=== PATIENT | female | born 1935 | race Hispanic/Latino ===

== ENCOUNTER 2019-11-12 17:44 | Emergency (ER) | payer OTHER, SELFPAY ==
[2019-11-12 17:47] VITALS: BP 136/69; PULSE 67; RESP 18; TEMP 36.8; O2SAT 99; BMI 28.5
--- NOTE | 2019-11-12 18:04 | ED.WEAKNESS ---
HPI - Weakness General Chief complaint: Weakness Stated complaint: weakness in legs Time Seen by Provider: 11/12/19 18:01 Source: patient and family (Daughter and ) Mode of arrival: Wheelchair Limitations: no limitations History of Present Illness HPI Narrative: Patient is an 84-year-old female. Has had a history of a stroke. Patient's daughter also states that she has recently been diagnosed with dementia. Caretakers at home include the family. Daughter states that at baseline patient requires some assistance with walking however normally can stand without any problems. He does use a wheelchair. Daughter states that over the past couple days they have noticed that the patient has had more problems with standing for longer periods of time or in the past she has not had issues. They took her to the walk-in clinic 0 concerned about a urinary tract infection. They were instructed to come to the emergency department after the urinalysis from that visit did not show a specific infection. Other than the weakness there are no other complaints. Patient has no complaints. Related Data Home Medications Medication Instructions Recorded Confirmed aspirin 81 mg PO QDAY #0 12/21/17 10/10/19 latanoprost [Xalatan] 1 drp OU HS #0 12/21/17 10/10/19 acetaminophen 325 mg capsule 325 mg PO Q6H PRN 05/03/18 10/10/19 lisinopril 20 mg tablet 10 mg PO DAILY 05/03/18 10/10/19 cholecalciferol (vitamin D3) 1,000 1,000 unit PO DAILY 11/16/18 10/10/19 unit capsule coenzyme Q10 100 mg capsule 100 mg PO DAILY 11/16/18 10/10/19 Resmed Aircurve 10 BIPAP #1 ea 02/07/19 10/10/19 risperidone 1 mg tablet 1 mg PO BID 02/07/19 10/10/19 zonisamide 100 mg capsule 200 mg PO DAILY 02/07/19 10/10/19 lamotrigine 100 mg tablet 100 mg PO BID tab 02/21/19 10/10/19 Previous Rx's Medication Instructions Recorded fluconazole 150 mg tablet 150 mg PO DAILY #1 tab 06/21/19 estradiol 0.5 gram VAGINAL 2XW #42.5 gram 07/27/19 oxyquinoline 0.025 %-sodium lauryl 1 each VAG .1XW #113.4 gram 07/27/19 sulfate 0.01 % vaginal gel Allergies Allergy/AdvReac Type Severity Reaction Status Date / Time naproxen [NAPROXEN] Allergy Severe facial Verified 11/12/19 17:47 swelling Review of Systems Constitutional Constitutional: Denies fever(s) and Reports weakness Cardiovascular Cardiovascular: Denies chest pain and Denies dyspnea Respiratory Respiratory: Denies dyspnea Gastrointestinal Gastrointestinal: Denies abdominal pain and Denies change in stool character Musculoskeletal Musculoskeletal: Reports muscle weakness Integumentary/Breasts Skin/Breast: Denies lesions and Denies rash Neurologic Neurologic: Reports weakness Comments: Other than weakness no change from baseline neurologic status per daughter Hematologic/Lymphatic Hematologic/Lymphatic: Denies easy bleeding and Denies easy bruising Patient History Medical History Ankle pain (Chronic) Carpal tunnel syndrome (Chronic 2007) Cataract (Chronic) Chicken pox (Resolved 1940) Eczema (Chronic) Excessive daytime sleepiness (Chronic) Foot pain (Chronic) Fractures (Resolved 1941) Hayfever (Chronic) Hearing loss (Chronic 2007) History of heavy periods (Resolved) History of painful menstruation (Resolved) Hypertension (Chronic 2002) Measles (Resolved 1939) Mumps (Resolved 1944) Obstructive sleep apnea of adult (Chronic) Osteoporosis (Chronic) Primary insomnia (Chronic) Psoriasis (Chronic) Recurrent sinusitis (Chronic 2007) Rosacea (Chronic) Shoulder pain (Chronic) Sleep apnea (Chronic) Vertigo (Chronic 2007) Social History Smoking Status: Never smoker Smoking Status: Never smoker Substance Use Type: does not use Exam Initial Vital Signs Initial Vital Signs: Vital Signs Temperature 98.2 F 11/12/19 17:47 Pulse Rate 67 11/12/19 17:47 Respiratory Rate 18 11/12/19 17:47 Blood Pressure 136/69 11/12/19 17:47 Pulse Oximetry 99 11/12/19 17:47 Const General: cooperative, healthy appearing, comfortable and well developed Limitations: mental status not altered HENCA Head: normal to inspection and normocephalic Resp Effort & Inspection: normal respiratory effort Auscultation: clear to auscultation bilaterally Cardio Rate: regular rate Rhythm: regular rhythm GI Inspection: non-distended Palpation: soft Skin Lesions: no lesions Rashes: no rashes Neuro General: alert, awake and oriented x3 Other: 5/5 bilateral lower extremity. Patient able to lift legs bilaterally off the bed equally and hold them for 10 seconds. Upper extremities equal strength. Extrem General: normal to inspection, capillary refill normal and No edema Psych Appearance: grossly normal and well kempt Scores GCS Michelle coma scale eye opening: Spontaneous Michelle coma scale verbal response: Orientated Michelle coma scale motor response: Obey commands [place] coma scale total score: 15 Course Orders Ordered: ED Orders 11/12/19 18:23 Basic Metabolic Panel Stat Complete Blood Count AUTO DIFF Stat Vital Signs Vital signs: Vital Signs - 8 hr 11/12/19 17:47 11/12/19 19:33 Temperature 98.2 F 97.7 F Pulse Rate 67 63 Respiratory Rate 18 18 Blood Pressure 136/69 132/56 L Pulse Oximetry 99 99 MDM - Weakness Medical Records Attestation: I reviewed the patient's medical records. Lab Data Attestation: I reviewed the patient's lab results. Result diagrams: 11/12/19 18:23 11/12/19 18:23 Labs: Lab Results 11/12/19 11/12/19 Range/Units 18:23 18:23 WBC 6.2 (4.5-11.0) X10^3/uL RBC 3.84 L (4.0-5.2) X10^6/uL Hgb 10.5 L (12.0-16.0) g/dL Hct 32.4 L (36-46) % MCV 84.2 (80-100) fL MCH 27.3 (26-34) PG MCHC 32.5 (30-36) % RDW 14.6 (11.6-14.8) % Plt Count 209 (150-400) X10^3/uL Neut % (Auto) 67.8 (50-75) % Lymph % (Auto) 18.8 L (25-40) % [place] % (Auto) 9.0 (3-14) % Eos % (Auto) 3.4 (2-4) % Baso % (Auto) 1.0 (0-2) % Neut # (Auto) 4200 (4833-0576) /uL Lymph # (Auto) 1200 (7276-2158) /uL [place] # (Auto) 600 (0-900) /uL Eos # (Auto) 200 (0-450) /uL Baso # (Auto) 100 (0-100) /uL Sodium 137 (137-145) mmol/L Potassium 4.3 (3.4-5.1) mmol/L Chloride 105 (98-107) mmol/L Carbon Dioxide 23 (22-32) mmol/L BUN 23 H (7-17) mg/dL Creatinine 1.70 H (0.52-1.04) mg/dL Estimated GFR 28.6 L (>60) mL/min BUN/Creatinine Ratio 13.5 (6-22) Glucose 99 (80-110) mg/dL Calcium 8.7 (8.4-10.2) mg/dL MDM Narrative Medical decision making narrative: Despite the reported history of dementia patient was alert and oriented x3. Had a GCS of 15. She had no specific complaints. Her blood work today relatively unremarkable. Low suspicion for CVA. Low suspicion for TIA. Patient was able to lift both her legs off the bed equally. Main complaint from the family was that patient seemed to have decreased ability to stand for prolonged periods of time which prior to 3 or 4 days ago she was able to do. For example patient was able to stand at the sink in order to brush her teeth and for the past couple days she has had to sit down during this time. Her ambulation seems to be at baseline. She does require helped at baseline but this is not new. We did discuss the lab results. Talked with the patient's daughter about contacting the primary provider on Thursday to discuss potential further workup. They were given return precautions and follow-up instructions. They expressed understanding and agreement with plan. Discharge Plan Departure Patient Disposition: Home Clinical Impression: Weakness Discharge Date/Time: 11/12/19 19:34 Instructions: How to Prevent Falls Activity Restrictions/Additional Instructions: I recommend on Thursday you contact your primary provider for follow-up to discuss further workup. Return to the emergency department for any new or worsening symptoms. Continue all of your medications as directed Prescriptions: No Action latanoprost [Xalatan] 0.005 % drops 1 drp OU HS Qty: 0 RF: 0 aspirin 81 MG tablet,chewable 81 mg PO QDAY Qty: 0 RF: 0 estradiol [Estrace] 0.01 % (0.1 mg/gram) cream 0.5 gram Vaginal 2XW Qty: 42.5 RF: 3 Trimo-Soto Jelly 0.025-0.01 % gel 1 each VAG .1XW Qty: 113.4 RF: 3 lisinopril 20 mg tablet 10 mg PO DAILY RF: 0 acetaminophen 325 mg capsule 325 mg PO Q6H PRNRF: 0 cholecalciferol (vitamin D3) 1,000 unit capsule 1,000 unit PO DAILY RF: 0 coenzyme Q10 [CoQ-10] 100 mg capsule 100 mg PO DAILY RF: 0 fluconazole [Diflucan] 150 mg tablet 150 mg PO DAILY Qty: 1 RF: 1 risperidone 1 mg tablet 1 mg PO BID RF: 0 zonisamide [Zonegran] 100 mg capsule 200 mg PO DAILY RF: 0 (DME) Resmed Aircurve 10 BIPAP Qty: 1 RF: 0 lamotrigine [Lamictal] 100 mg tablet 100 mg PO BID RF: 0
[2019-11-12 18:38] LABS: Add Manual Diff / Slide Review NO; Basophils Absolute Auto 100 /uL (0-100); Eosinophils Absolute Auto 200 /uL (0-450); Eosinophils Percent Auto 3.4 % (2-4); Hematocrit 32.4 % (36-46); Hemoglobin 10.5 g/dL (12.0-16.0); Lymphocytes Absolute Auto 1200 /uL (1100-4500); Lymphocytes Percent Auto 18.8 % (25-40); Mean Corpuscular HGB Conc 32.5 % (30-36); Mean Corpuscular Hemoglobin 27.3 PG (26-34); Mean Corpuscular Volume 84.2 fL (80-100); Monocytes Absolute Auto 600 /uL (0-900); Neutrophils Absolute Auto 4200 /uL (1500-7000); Neutrophils Percent Auto 67.8 % (50-75); Platelet Count 209 X10^3/uL (150-400); Red Blood Cell Count 3.84 X10^6/uL (4.0-5.2); Red Cell Distribution Width 14.6 % (11.6-14.8); White Blood Cell Count 6.2 X10^3/uL (4.5-11.0)
[2019-11-12 18:48] LABS: BUN Creatinine Ratio 13.5 (6-22); Blood Urea Nitrogen 23 mg/dL (7-17); Calcium 8.7 mg/dL (8.4-10.2); Carbon Dioxide 23 mmol/L (22-32); Chloride 105 mmol/L (98-107); Estimated Glomerular Filt Rate 28.6 mL/min (>60); Glucose 99 mg/dL (80-110); HEMOLYSIS < 15 (0-50); Potassium 4.3 mmol/L (3.4-5.1); Sodium 137 mmol/L (137-145)
[2019-11-12 19:33] VITALS: BP 132/56; PULSE 63; RESP 18; TEMP 36.5; O2SAT 99
== END 2019-11-12 19:34 | disposition home or self-care (01) ==
PROVIDERS: Emergency Provider Emergency Medicine
DX: R53.1 Weakness (principal); F03.90 Unspecified dementia, unspecified severity, without behavioral disturbance, psychotic disturbance, mood disturbance, and anxiety
CPT/HCPCS: 36415; 80048; 85025; 99283

== ENCOUNTER → 2020-09-24 14:02 | Outpatient (CLI) | payer OTHER, SELFPAY ==
[2020-09-24 15:05] LABS: Add Manual Diff / Slide Review NO; Basophils Absolute Auto 100 /uL (0-100); Basophils Percent Auto 0.9 % (0-2); Eosinophils Absolute Auto 100 /uL (0-450); Hematocrit 34.1 % (36-46); Lymphocytes Absolute Auto 1200 /uL (1100-4500); Mean Corpuscular HGB Conc 32.2 % (30-36); Mean Corpuscular Hemoglobin 31.2 PG (26-34); Mean Corpuscular Volume 96.8 fL (80-100); Monocytes Absolute Auto 600 /uL (0-900); Monocytes Percent Auto 9.3 % (3-14); Neutrophils Absolute Auto 4500 /uL (1500-7000); Neutrophils Percent Auto 69.8 % (50-75); Platelet Count 239 X10^3/uL (150-400); Red Blood Cell Count 3.52 X10^6/uL (4.0-5.2); White Blood Cell Count 6.5 X10^3/uL (4.5-11.0)
[2020-09-24 16:37] LABS: Iron 61 ug/dL (37-170)
[2020-09-24 16:46] LABS: Percent Iron Saturation 18 % (15-50); Total Iron Binding Capacity 330 ug/dL (265-497)
== END ==
PROVIDERS: PCP Internal Medicine; Referring Provider Internal Medicine; Visit Provider Internal Medicine
DX: K92.2 Gastrointestinal hemorrhage, unspecified (principal); D50.9 Iron deficiency anemia, unspecified
CPT/HCPCS: 36415; 83540; 83550; 85025

== ENCOUNTER → 2020-11-09 10:37 | Outpatient (CLI) | payer OTHER, SELFPAY ==
[2020-11-09 11:11] LABS: COVID19 -Nasal RAPID Negative (Negative)
== END ==
PROVIDERS: PCP Internal Medicine; Visit Provider Specialist
DX: Z20.822 Contact with and (suspected) exposure to COVID-19 (principal)
CPT/HCPCS: 87635; C9803

== ENCOUNTER 2020-11-12 08:56 | Day surgery (SDC) | payer OTHER, SELFPAY ==
[2020-11-12] VITALS (11 sets, daily range): BP systolic 135–158; BP diastolic 56–75; PULSE 60–83; RESP 10–18; TEMP 36.2–36.9; O2SAT 94–99; BMI 25.7
--- NOTE | 2020-11-12 | DI.RAD.S_ITS ---
PROCEDURE: XR CHEST 1V INDICATIONS: PORT A CATH TECHNIQUE: One view of the chest was acquired. COMPARISON: None. FINDINGS: Surgical changes and devices: There is a Port-A-Cath in the left anterior chest with the tip of the catheter projecting to the area of brachiocephalic confluence. Lungs and pleura: Lungs are clear. No pleural effusions or pneumothorax. Mediastinum: Mediastinal contours appear normal. Heart size is mildly increased in size. Bones and chest wall: No suspicious bony lesions. Overlying soft tissues appear unremarkable. IMPRESSION: 1. The tip of the Port-A-Cath projecting to the area of brachiocephalic confluence. Please confirm venous location of the catheter. Dictated by: Alfredo Leone M.D. on 11/12/2020 at 14:29 Approved by: Alfredo Leone M.D. on 11/12/2020 at 14:31
[2020-11-12] MEDS: ACETAMINOPHEN 325 MG TABLET 650 MG PO (09:12)
[2020-11-12] MEDS: LACTATED RINGERS 1,000 ML 42 ML IV (10:02)
--- NOTE | 2020-11-12 11:56 | PM.HP.1 ---
History of Present Illness History of Present Illness Date Patient Seen: 11/12/20 Time Patient Seen: 11:29 Chief complaint: SDC Narrative: The patient is a woman here for a Port-A-Cath. She is about to undergo immunotherapy for a tumor apparently near her GE junction. She is apparently a poor candidate for radiation and IV chemotherapy. Patient History Medical History Ankle pain Carpal tunnel syndrome (2007) Cataract Cerebrovascular accident (CVA) Chicken pox (194) Eczema Excessive daytime sleepiness Foot pain Fractures (1941) Hayfever Hearing loss (2007) History of heavy periods History of painful menstruation Hypertension (2002) Measles (1940) Mumps (194) Obstructive sleep apnea of adult Osteoporosis Primary insomnia Psoriasis Recurrent sinusitis (2007) Rosacea Shoulder pain Sleep apnea Vertigo (2007) Surgical History Anesthesia History of meniscal tear (05/2004) Status post cholecystectomy (06/2004) Family & Social History Family History Father Hypertension High cholesterol Brainstem hemorrhage Mother Diabetes mellitus Hypertension High cholesterol Stroke Brother Cancer Sister Colon cancer Breast cancer Social History: household members spouse Tobacco & Substance use: Smoking Status Former smoker alcohol intake never Substance Use Type does not use Meds Home Medications and Allergies Home Medications Medication Instructions Recorded Confirmed Type latanoprost [Xalatan] 1 drp OU HS #0 12/21/17 11/12/20 History acetaminophen 325 mg capsule 325 mg PO Q6H PRN 05/03/18 11/12/20 History lisinopril 20 mg tablet 10 mg PO DAILY 05/03/18 11/12/20 History cholecalciferol (vitamin D3) 25 1,000 unit PO DAILY 11/16/18 11/12/20 History mcg (1,000 unit) capsule risperidone 1 mg tablet 1 mg PO BID 02/07/19 11/12/20 History zonisamide 100 mg capsule 200 mg PO DAILY 02/07/19 11/12/20 History lamotrigine 100 mg tablet 100 mg PO BID tab 02/21/19 11/12/20 History oxyquinoline 0.025 %-sodium lauryl 1 each VAG .1XW #113.4 gram 07/27/19 11/12/20 Rx sulfate 0.01 % vaginal gel estradiol See Rx Instructions .ROUTE 08/06/20 11/12/20 Rx .COMPLEX #42.5 gram Allergies Allergy/AdvReac Type Severity Reaction Status Date / Time naproxen [NAPROXEN] Allergy Severe facial Verified 11/12/20 09:21 swelling Review of Systems Review of Systems Narrative: Patient denies any cardiac problems. No cough or cold. She has lost a lot of weight and use to use a machine for sleep apnea but since her weight loss she has not done that any longer. Exam Vital Signs (past 8 hours): - 11/12/20 09:37 Temperature 98.2 F Pulse Rate 64 Respiratory Rate 18 Blood Pressure 158/72 H Pulse Oximetry 99 Oxygen Delivery Method Room Air Narrative Exam Narrative: Cooperative in no apparent distress. Her lungs are clear to auscultation. No rales or rhonchi. Heart regular rate and rhythm no murmur gallop. Abdomen is scaphoid soft nontender without mass. Patient is alert. Affect is flat. Responses are limited though propria it. Assessment & Plan Assessment & Plan narrative: Patient request is been made for placement of a Port-A-Cath. She is right-hand dominant. I have discussed placement with her. I discussed the nature of the procedure. Will uses subclavian or internal jugular vein. Risks of bleeding infection clotting of the vein with arm swelling or possible PEG and possible pneumothorax with need for chest tube were all discussed with her. She appears to understand wishes to proceed. Apparently her had a similar device in the past.
--- NOTE | 2020-11-12 12:01 | PM.PREOP ---
Pre-operative Note COVID-19 COVID-19 status: Negative Result date/Date tested (Pos, Neg/Pending): 11/09/20 Interval Note History & Physical reviewed/Exam performed by Physician: Yes Changes to H&P: No
[2020-11-12] MEDS: CEFAZOLIN 2 GM/100 ML FROZ.PIGGY IV (12:15)
--- NOTE | 2020-11-12 12:28 | SUR.OPER ---
Supine on padded OR bed, head on gel donut, arm padded and tucked at side, legs uncrossed, safety belt at thigh, tape over blanket over lower legs .
[2020-11-12] MEDS: LIDOCAINE 1% 30 ML INJ (12:39)
[2020-11-12] MEDS: HEPARIN 5,000 UNIT, SODIUM CHLORIDE 0.9% 50 ML IV (12:39)
--- NOTE | 2020-11-12 13:31 | PM.OP.1 ---
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 No pneumothorax. Closure Type: primary Specimen(s): none sent Prosthetic devices, grafts, tissues, transplants, or devices: Slim Port-A-Cath Applied: catheter Estimated Blood Loss (mL): 5 Blood products transfused: none Procedure in detail: patient is placed supine on the operating room table underwent general LMA anesthesia. A roll was placed between her shoulders that she was prepped and draped in the usual fashion. Local anesthetic was infiltrated a field block fashion beneath the left clavicle. Transverse incision was made and carried down into the subcu. a pocket was created inferior to the incision told the port. Needle was inserted on 1st attempt in the subclavian vein and guidewire passed a needle removed. The guidewire was going in the appropriate location. The port was put together flushed and tapered to appropriate length. The dilator and introducer passed over the guidewire. The dilator and guidewire removed leaving the introducer in place. The catheter was passed through the introducer and the introducer peeled away leaving the tip in the SVC. The port was secured to the chest wall with interrupted 2 0 silk sutures. The subQ was closed over the port with interrupted 3-0 Vicryl. Skin was closed a running 4-0 Vicryl subcuticular stitch and Steri-Strips. Dressing was applied the patient tolerated the procedure well. Complications: none Post-operative Condition: stable Disposition: PACU
== END 2020-11-12 14:30 | disposition home or self-care (01) ==
PROVIDERS: PCP Internal Medicine; Referring Provider Specialist; Visit Provider Specialist
PROC: (CPT 36561; principal; 2020-11-12 10:15)
DX: C16.0 Malignant neoplasm of cardia (principal); Z45.2 Encounter for adjustment and management of vascular access device; G47.33 Obstructive sleep apnea (adult) (pediatric); I10 Essential (primary) hypertension; I69.354 Hemiplegia and hemiparesis following cerebral infarction affecting left non-dominant side; F03.90 Unspecified dementia, unspecified severity, without behavioral disturbance, psychotic disturbance, mood disturbance, and anxiety; G40.909 Epilepsy, unspecified, not intractable, without status epilepticus
CPT/HCPCS: 36561; 71045; 76000; C1788; J0690; J1100; J1644; J2405; J2704

== ENCOUNTER → 2021-01-24 16:03 | Outpatient (CLI) | payer OTHER, SELFPAY | PROVIDERS: PCP Internal Medicine; Referring Provider Internal Medicine Hematology & Oncology; Visit Provider Internal Medicine Hematology & Oncology | DX: C16.0 Malignant neoplasm of cardia (principal) ==

== ENCOUNTER → 2021-02-28 15:17 | Outpatient (CLI) | payer OTHER, SELFPAY ==
--- NOTE | 2021-02-28 15:19 | DI.CT.S_ITS ---
PROCEDURE: CT CHEST ABD PEL W CON INDICATIONS: GE junction cancer TECHNIQUE: After the administration of oral and intravenous contrast, 5 mm thick sections acquired from the lung apices to the symphysis. 5 mm coronal and sagittal reformats were performed, with additional 7 mm coronal MIP reformats through the lungs. For radiation dose reduction, the following was used: automated exposure control, adjustment of mA and/or kV according to patient size. COMPARISON: [place], [place], [place] PET CT FUSION SKULL 2 THIGH, 11/21/2020, 11:29. FINDINGS: Image quality: Excellent. CHEST: Lungs and pleura: No acute airspace opacities. Mild linear atelectasis. No pleural effusions or pneumothorax. Central and peripheral airways appear patent and normal in caliber. Mediastinum: Heart size is normal. No pericardial effusion. No mediastinal or hilar adenopathy by size criteria. Thoracic aorta and central pulmonary arteries are normal in size. Esophagus is normal in caliber. No hiatal hernia. The Port-A-Cath from left-sided approach slightly crosses the midline but does not enter the superior vena cava. Its tip terminates within the left brachiocephalic vein series 2, image 14. Chest wall: No axillary or supraclavicular adenopathy by size criteria. Thyroid gland is normal where well seen. ABDOMEN: Solid organs: Liver is normal in size and enhancement except for a small 1 cm hypodensity at the subcapsular a left hepatic lobe seen on series 2, image 46 and representing the focus of metastatic disease seen by PET-CT scanning at that site. No new liver lesion is found. Gallbladder appears previously resected . Biliary system is non dilated. Pancreas enhances normally. Spleen is normal in size and enhancement. No adrenal nodules. Kidneys demonstrate normal size and enhancement, without hydronephrosis. Peritoneum and bowel: Bowel loops demonstrate normal wall thickness and caliber. No free fluid or air. The gastric mass at the cardia/body is prominent in wall thickness, possibly a slightly enlarged, having a maximal wall thickness of approximately 3.7 cm, and a and measuring up to 5.3 x 9.5 cm in maximal curvilinear dimensions at the anterior gastric wall prominently within the gastric cardia. Nodes and vessels: No retroperitoneal or mesenteric adenopathy by size criteria. Aorta and inferior vena cava are normal in size. Miscellaneous: No ventral hernias. PELVIS: Genitourinary: Bladder wall thickness is normal. Miscellaneous: No inguinal hernias or adenopathy. Bones: No suspicious bony lesions. No vertebral body compression fractures. IMPRESSION: The gastric mass lesion was previously visualized by noncontrast nuclear medicine PET-CT scanning. The current contrast enhanced study allows better visualization of this mass which is large and may have slightly enlarged from the prior PET-CT scanning. This is also associated with a focal 1 cm subcapsular left hepatic lobe all anterior metastatic lesion, also seen on prior PET-CT scanning. No new metastatic disease is found. Dictated by: Rico Bernard M.D. on 03/01/2021 at 11:04 Approved by: Rico Bernard M.D. on 03/01/2021 at 11:34
== END ==
PROVIDERS: PCP Internal Medicine; Referring Provider Internal Medicine Hematology & Oncology; Visit Provider Internal Medicine Hematology & Oncology
DX: C16.0 Malignant neoplasm of cardia (principal); C78.7 Secondary malignant neoplasm of liver and intrahepatic bile duct
CPT/HCPCS: 71260; 74177; Q9967

== ENCOUNTER → 2021-03-19 13:36 | Outpatient (CLI) | payer OTHER, SELFPAY ==
[2021-03-19 14:02] LABS: COVID19 -Nasal RAPID Negative (Negative)
== END ==
PROVIDERS: PCP Internal Medicine; Visit Provider Specialist
DX: Z20.822 Contact with and (suspected) exposure to COVID-19 (principal)
CPT/HCPCS: 87635; C9803

== ENCOUNTER 2021-03-20 10:15 | Day surgery (SDC) | payer OTHER, SELFPAY ==
[2021-03-20] VITALS (8 sets, daily range): BP systolic 126–159; BP diastolic 52–70; PULSE 55–61; RESP 12–20; TEMP 36.1–36.6; O2SAT 93–100; BMI 25.5
--- NOTE | 2021-03-20 | DI.RAD.S_ITS ---
PROCEDURE: XR CHEST 1V INDICATIONS: PORT PLACEMENT TECHNIQUE: One intraoperative view of the chest was acquired. COMPARISON: [facility], CT, CT CHEST ABD PEL W CON, 02/28/2021, 16:28. [facility], CR, XR CHEST 1V, 11/12/2020, 13:12. FINDINGS: Surgical changes and devices: Left-sided port with the catheter tip projecting in the region of the middle 3rd of the SVC. IMPRESSION: Left-sided port with the catheter tip projecting in the region of the middle 3rd of the SVC. Dictated by: Juan Colin M.D. on 03/20/2021 at 14:31 Approved by: Juan Colin M.D. on 03/20/2021 at 14:33
--- NOTE | 2021-03-20 10:24 | PM.PREOP ---
Pre-operative Note COVID-19 COVID-19 status: Negative Result date/Date tested (Pos, Neg/Pending): 03/19/21 Interval Note History & Physical reviewed/Exam performed by Physician: Yes Changes to H&P: No
[2021-03-20] MEDS: LACTATED RINGERS 1,000 ML 42 ML IV (10:48)
[2021-03-20] MEDS: CEFAZOLIN 1 GM VIAL 2 GM IV (11:33)
--- NOTE | 2021-03-20 11:46 | SUR.OPER ---
Supine on padded OR bed, head on pillow, arm padded and tucked at side, legs uncrossed, safety belt at thigh, tape over blanket over lower legs .
[2021-03-20] MEDS: HEPARIN 5,000 UNIT, SODIUM CHLORIDE 0.9% 50 ML IV (11:52)
[2021-03-20] MEDS: LIDOCAINE 1% 30 ML INJ (11:53)
--- NOTE | 2021-03-20 12:21 | P.OP_ITS ---
Operative Date/Time/Diagnoses Date of procedure: 03/20/21 Time of procedure: 12:22 Pre-op diagnosis: Port-A-Cath which had backed out and was no longer useful. Post-op diagnosis: same Procedure & Clinicians Procedure: Removal of old Port-A-Cath and placement of new Port-A-Cath left infraclavicular fossa Same procedure as scheduled: Yes Indications: Need for IV access for chemotherapy. Recently placed port had actually backed out and looped under her skin. It was no longer aspirating. Surgeon: Sanchez Carreon Click Yes if Unassisted: Yes Anesthesia Type: General Operative Notes Findings: Tip appeared to be against the wall preventing aspiration. I changed the Port-A-Cath and catheter over a wire. See details below. Closure Type: primary Specimen(s): none sent Prosthetic devices, grafts, tissues, transplants, or devices: Slim Port-A-Cath Applied: catheter Estimated Blood Loss (mL): 5 Blood products transfused: none Procedure in detail: The patient was placed supine on the operating room and underwent general LMA anesthesia. A roll was placed between her shoulders. She was prepped and draped in the usual fashion. Local anesthetic was infiltrated in a field block fashion around the prior port. Transverse incision was made through the old scar and carried down level the port. I dissected the port itself out of its pocket and delivered it into the wound cutting attachments and the holding sutures which had been placed. With the assistance of fluoroscopy I backed the catheter out so it was straight. I estimated the length needed for the 2nd port and catheter. I tapered it to appropriate length. I then clamped the tubing and transected it near the attachment to the port. I dilated the end to make passage easier and then slid a guidewire through the catheter under fluoroscopy taking great care not to lose control of the catheter. When I reached the end the catheter would not come through the opening until I backed it is slightly away from its position and then it slid without difficulty suggesting than it had been against the wall. The guidewire was passed into the superior vena cava and beyond. I backed the catheter off the wire making sure to control both as I backed them out and did not lose control of either. The catheter was then slid off the wire once the entire length was visible. The guidewire was still noted to be in good position in the superior vena cava. I then placed the port into the prior pocket. I passed the dilator and introducer over the guidewire observing it under fluoroscopy. It had a straight arcing cur ve. The guidewire and the dilator were removed leaving leak peel-away catheter introducer in place. I passed the catheter through the introducer and peeled away leaving the tip in the distal SVC. The flouroscopic image was captured and preserved. The port was secured to the chest wall with interrupted 2 0 silk suture. I also placed a investing suture around the catheter tying it down not so tightly as to constrict the catheter but just to hold it in place. I then aspirated and flushed the port without difficulty. The subcu was closed with 3- 0 Vicryl. The skin was closed a running 4-0 Vicryl subcuticular stitch and Steri-Strips. Dressing was applied and the patient was awakened, extubated and taken the recovery room good condition. Complications: none Post-operative Condition: stable Disposition: PACU Plan for aftercare: Follow-up in the office. No post procedures chest x-ray was performed because there was no needle insertion which could have resulted in a pneumothorax. Only the image post placement of the catheter was preserved to confirm its location.
== END 2021-03-20 13:20 | disposition home or self-care (01) ==
PROVIDERS: PCP Internal Medicine; Referring Provider Specialist; Visit Provider Specialist
PROC: (CPT 36582; principal; 2021-03-20 11:15)
DX: C16.0 Malignant neoplasm of cardia (principal)
CPT/HCPCS: 36582; 71045; 76000; C1788; J0690; J1644; J2704; J3010

== ENCOUNTER → 2021-04-18 10:13 | Outpatient (CLI) | payer OTHER, SELFPAY ==
--- NOTE | 2021-04-18 10:14 | DI.ECHO.S_ITS ---
[place] [facility]---------+ [facility] +---------+ : : [address] : : : : [address] : : : : [id number] : : : : Phone: [phone]---------+ Echocardiogram Report + + :Name: JAZZMINE SNYDER V Study Date: 04/18/2021 Height: 60 in : :[facility] ReadingLocation: Weight: 131 lb : : Gender: Female BSA: 1.6 m2 : :: 1935 Age: 85 yrs BP: 140/67 mmHg: :Reason For Study: CANCER : :Ordering Physician: SANKET, : :LISBETH Performed By: Stan Lamas : :Referring: OMAR COLES : + + Interpretation Summary 1) Normal left ventricular thickness, size, wall motion, and systolic function (EF 55-60%). 2) Normal right ventricular size and function. 3) Diastolic parameters suggest a pseudonormalization pattern, consistent with probable elevated filling pressures. 4) There is mild aortic stenosis (valve area 1.5cm2, severity ratio 0.49). 5) No prior Echo available for comparison. Procedure: A two-dimensional transthoracic echocardiogram with color flow and Doppler was performed. The study quality was technically adequate. There is no prior echocardiogram noted for this patient. The patient was in sinus rhythm with heart rates between 58-61 bpm during the exam. Left Ventricle: The left ventricle is normal in size and wall thickness. Left ventricular systolic function is normal. The ejection fraction is estimated to be 55-60%. There are no focal wall motion abnormalities. Diastolic parameters suggest a pseudonormalization pattern, consistent with probable elevated filling pressures. Right Ventricle: The right ventricle is normal in size and function. Atria: The left atrium is moderately dilated. Right atrial size is normal. There is no Doppler evidence for an interatrial shunt. Mitral Valve: There is mild mitral annular calcification. There is mild mitral regurgitation. Aortic Valve: The aortic valve is normal in structure and function. There is mild aortic stenosis. No aortic regurgitation is present. Tricuspid Valve: The tricuspid valve is normal in structure and function. There is trace tricuspid regurgitation. Pulmonary artery pressures cannot be estimated because of the lack of a measurable TR jet velocity but the IVC suggests a CVP of around 3 mmHg. Pulmonic Valve: The pulmonic valve is not well visualized. There is mild pulmonic regurgitation. Great Vessels: The aortic root is normal size. The ascending aorta could not be visualized. The IVC is of normal diameter and collapses greater than 50% with a sniff. This suggests a low right atrial pressure of 3 mm Hg. Pericardium/ Pleura There is no pericardial effusion. There is no pleural effusion. MMode/2D Measurements & Calculations LVIDd: 4.3 cm LVOT diam: 2.0 cm LVIDs: 2.9 cm Ao root diam: 2.8 cm FS: 31.3 % IVSd: 1.1 cm LVPWd: 1.0 cm LV villasenor. diameter/BSA (cm/m^2): 2.7 LV sys. diameter/BSA (cm/m^2): 1.9 LA A2 area: 17.4 cm2 RA long axis: 5.6 cm LA A4 area: 24.9 cm2 RA area: 14.0 cm2 LA length (vol): 5.1 cm RA vol: 29.8 ml LA vol: 72.0 ml RA : 19.1 ml/m2 LA vol index: 46.2 ml/m2 RVD1 (basal): 3.3 cm TAPSE: 2.3 cm Doppler Measurements & Calculations Ao V2 max: 114.3 cm/sec LVOT Max Ney: 47.1 cm/sec Ao V2 mean: 68.9 cm/sec LV V1 max P.8 mmHg Ao max P.2 mmHg LV V1 VTI: 11.6 cm Ao mean P.3 mmHg JUAN JOSE(I,D): 1.5 cm2 Ao V2 VTI: 23.8 cm JUAN JOSE(V,D): 1.3 cm2 sev ratio: 0.49 JUAN JOSE indexed to BSA (cm^2/m^2): 0.97 MV E max ney: 97.2 cm/sec PA V2 max: 99.3 cm/sec MV A max ney: 109.0 cm/sec PA V2 mean: 67.5 cm/sec MV E/A: 0.89 PA mean P.0 mmHg Med Peak E' Ney: 7.2 cm/sec PA pr(Accel): 51.0 mmHg E/E' med: 13.6 Lat Peak E' Ney: 6.5 cm/sec E/E' lat: 14.9 E/e' average: 14.2 MV dec time: 0.26 sec SV(LVOT): 36.1 ml Reading Physician:04:09 PM
== END ==
PROVIDERS: PCP Internal Medicine; Referring Provider Internal Medicine Hematology & Oncology; Visit Provider Internal Medicine Hematology & Oncology
DX: Z01.818 Encounter for other preprocedural examination (principal); C16.0 Malignant neoplasm of cardia; I08.0 Rheumatic disorders of both mitral and aortic valves
CPT/HCPCS: 93306

== ENCOUNTER 2021-08-09 14:01 | Emergency (ER) | payer OTHER, MEDICARE, SELFPAY ==
[2021-08-09 14:39] VITALS: BP 136/63; PULSE 68; RESP 12; TEMP 36.8; O2SAT 98; BMI 25.0
[2021-08-09 16:28] LABS: Amorphous Sediment Urine 1+; Bacteria Urine Few (2-10); Culture Indicated Urine Cult Not Indicated; Mucus Urine 1+ (Negative); RBC Urine 0-1/HPF (0-5/HPF); Squamous Epithelial Cell Urine 5-10 /HPF (0-5/HPF); Transitional Epi Cells Urine 1-5/HPF (0-5/HPF); WBC Urine 0-1/HPF (0-5/HPF)
[2021-08-09 17:27] LABS: Add Manual Diff / Slide Review NO; Basophils Absolute Auto 0 /uL (0-100); Basophils Percent Auto 0.5 % (0-2); Eosinophils Absolute Auto 100 /uL (0-450); Eosinophils Percent Auto 1.4 % (2-4); Hematocrit 30.6 % (36-46); Hemoglobin 10.2 g/dL (12.0-16.0); Lymphocytes Absolute Auto 1300 /uL (1100-4500); Lymphocytes Percent Auto 16.6 % (25-40); Mean Corpuscular HGB Conc 33.2 % (30-36); Mean Corpuscular Hemoglobin 29.7 PG (26-34); Mean Corpuscular Volume 89.3 fL (80-100); Monocytes Absolute Auto 500 /uL (0-900); Monocytes Percent Auto 6.2 % (3-14); Neutrophils Absolute Auto 6100 /uL (1500-7000); Neutrophils Percent Auto 75.3 % (50-75); Platelet Count 261 X10^3/uL (150-400); Red Blood Cell Count 3.43 X10^6/uL (4.0-5.2); Red Cell Distribution Width 15.1 % (11.6-14.8)
--- NOTE | 2021-08-09 17:40 | PC.NURSE ---
pt daughter has concerns for intermittent increased work of breathing- not present at this time. and 2 days of diarrhea. pt has some general pain at baseline but in no discomfort at this time.
--- NOTE | 2021-08-09 17:46 | ED_ITS ---
HPI - Female Genitourinary <Mala Pham [facility] - Last Filed: 08/09/21 21:00> General Chief complaint: Urogenital-Female Stated complaint: Poss bladder infection- gastric cancer Time Seen by Provider: 08/09/21 14:48 Source: family Mode of arrival: Wheelchair History of Present Illness HPI Narrative: 86-year-old female with complicated medical history including gastric esophageal cancer receiving immunotherapy no chemotherapy or radiation, GAYATHRI, glaucoma, Parkinsonism/tremors from medications, and is brought in by her caregiver and daughter for primary concern about possible UTI. Patient is undergoing Herceptin and Keytruda treatment and the daughter is concerned about her side effects which have been transient in nature. They have been in close contact with her oncologist about this patient is a DNR with supportive measures including IV fluids, antibiotics, nutrition. Patient's daughter who is here with her today is not her POA. Patient is currently alert, oriented, and at baseline. Patient's daughter reports that she has had episodes of Bartolome-Ybarra respirations which have not occurred today. Patient's daughter reports on 08/06/2021 her urine had a foul odor and it appeared cloudy which is unusual for her, it was right after her last treatment. patient's daughter states that this has resolved in her urine today has been clear. Patient denies any dysuria, abdominal pain, pain anywhere, dizziness, headache, nausea or vomiting. Patient has been at her baseline activity level for the last couple of days according to the daughter without any progressive symptoms of any kind. Jennifer shaikh reports that she has had transient Related Data Home Medications Medication Instructions Recorded Confirmed latanoprost 0.005 % eye drops 1 drp OU HS #0 12/21/17 05/30/21 (Xalatan) acetaminophen 325 mg capsule 325 mg PO Q6H PRN 05/03/18 05/30/21 lisinopril 20 mg tablet 20 mg PO DAILY 05/03/18 05/30/21 cholecalciferol (vitamin D3) 25 1,000 unit PO DAILY 11/16/18 05/30/21 mcg (1,000 unit) capsule risperidone 1 mg tablet 0.5 mg PO BID 02/07/19 05/30/21 zonisamide 100 mg capsule 200 mg PO DAILY 02/07/19 05/30/21 (Zonegran) lamotrigine 100 mg tablet 100 mg PO BID tab 02/21/19 05/30/21 (Lamictal) pantoprazole 40 mg tablet,delayed 40 mg PO DAILY 03/20/21 05/30/21 release (Protonix) sucralfate 1 gram tablet (Carafate) 1 g PO Q6-8H 03/20/21 05/30/21 amlodipine 2.5 mg tablet 2.5 mg PO DAILY 04/18/21 05/30/21 morphine 0.5 mg/mL injection 0.25 08/01/21 solution Previous Rx's Medication Instructions Recorded oxyquinoline 0.025 %-sodium lauryl 1 ea VAG .1XW #113.4 gram 06/27/21 sulfate 0.01 % vaginal gel (Trimo-Soto Jelly) levothyroxine 75 mcg capsule 75 mcg PO DAILY #30 cap 07/11/21 estradiol See Rx Instructions .ROUTE 07/30/21 .COMPLEX #42.5 g Allergies Allergy/AdvReac Type Severity Reaction Status Date / Time naproxen [NAPROXEN] Allergy Severe facial Verified 05/13/21 14:40 swelling Review of Systems <VASU Patino - Last Filed: 08/09/21 21:00> Review of Systems Narrative: General: denies fever, chills Head/Neck: denies headache, neck pain Eyes: denies visual changes, eye pain Cardio: denies chest pain, palpitations Respiratory: denies shortness of breath, cough GI: denies abdominal pain, nausea, vomiting, or diarrhea : denies dysuria, hematuria MSK: denies joint pain, muscle weakness Skin: denies rash, itching Neuro: denies numbness, tingling Patient History <VASU Patino - Last Filed: 08/09/21 21:00> Medical History (Updated 08/09/21 @ 18:40 by VASU Patino) Ankle pain Carpal tunnel syndrome (2007) Cataract Cerebrovascular accident (CVA) Chicken pox (194) Eczema Excessive daytime sleepiness Foot pain Fractures (1941) Hayfever Hearing loss (2007) History of heavy periods History of painful menstruation Hypertension (2002) Measles (1940) Mild dementia Mumps (194) Obstructive sleep apnea of adult Osteoporosis Port-A-Cath in place (11/12/20) Primary insomnia Psoriasis Recurrent sinusitis (2007) Rosacea Seizure disorder Shoulder pain Sleep apnea Vertigo (2008) Surgical History (Updated 03/07/21 @ 10:28 by Wilman Gamble MD) Anesthesia History of meniscal tear (05/2004) Status post cholecystectomy (06/2004) Family History Father Hypertension High cholesterol Brainstem hemorrhage Mother Diabetes mellitus Hypertension High cholesterol Stroke Brother Cancer Sister Colon cancer Breast cancer Substance Use Type: prescription drug Exam <VASU Patino - Last Filed: 08/09/21 21:00> Narrative Exam Narrative: Independently reviewed vitals signs and nursing notes. General: Awake, alert, nontoxic, no cardiorespiratory distress, CAMPO, pleasant and comfortable Head/Neck: Atraumatic, neck full range of motion Eyes: EOMI, conjunctiva normal Nose: nares patent, no rhinorrhea Mouth/Throat: moist mucus membranes, posterior pharynx normal, no oral lesions Cardio: Regular rate and rhythm, no peripheral edema Respiratory: respirations regular rhythm and rate, unlabored without wheezing, stridor, or rales. No retractions. GI: Abdomen soft, nontender, no masses MSK: Moves all extremities, neurovascularly intact Skin: Normal capillary refill, no rash Neuro: Normal speech and cognition, normal gait Initial Vital Signs Initial Vital Signs: Vital Signs Temperature 98.3 F 08/09/21 14:39 Pulse Rate 68 08/09/21 14:39 Respiratory Rate 12 08/09/21 14:39 Blood Pressure 136/63 08/09/21 14:39 Pulse Oximetry 98 08/09/21 14:39 <Yecenia Ramirez DO - Last Filed: 08/13/21 07:04> Initial Vital Signs Initial Vital Signs: Vital Signs Temperature 98.3 F 08/09/21 14:39 Pulse Rate 68 08/09/21 14:39 Respiratory Rate 12 08/09/21 14:39 Blood Pressure 136/63 08/09/21 14:39 Pulse Oximetry 98 08/09/21 14:39 Course <VASU Patino - Last Filed: 08/09/21 21:00> Orders Ordered: ED Orders 08/09/21 15:57 Urine Microscopic Stat 08/09/21 17:12 CMP [Comprehensive Metabolic Panel] Stat Complete Blood Count AUTO DIFF Stat 08/09/21 17:51 EKG-12 Lead Stat Vital Signs Vital signs: Vital Signs - 8 hr 08/09/21 14:39 08/09/21 19:06 Temperature 98.3 F 98 F Pulse Rate 68 64 Respiratory Rate 12 12 Blood Pressure 136/63 130/62 Pulse Oximetry 98 96 <Yecenia Ramirez DO - Last Filed: 08/13/21 07:04> Orders Ordered: ED Orders 08/09/21 15:57 Urine Microscopic Stat 08/09/21 17:12 CMP [Comprehensive Metabolic Panel] Stat Complete Blood Count AUTO DIFF Stat 08/09/21 17:51 EKG-12 Lead Stat Vital Signs Vital signs: Vital Signs - 8 hr 08/09/21 14:39 08/09/21 19:06 Temperature 98.3 F 98 F Pulse Rate 68 64 Respiratory Rate 12 12 Blood Pressure 136/63 130/62 Pulse Oximetry 98 96 MDM - Female Genitourinary <VASU Patino - Last Filed: 08/09/21 21:00> Lab Data Result diagrams: 08/09/21 17:12 08/09/21 17:12 Labs: Lab Results 08/09/21 08/09/21 08/09/21 Range/Units 15:57 17:12 17:12 WBC 8.0 (4.5-11.0) X10^3/uL RBC 3.43 L (4.0-5.2) X10^6/uL Hgb 10.2 L (12.0-16.0) g/dL Hct 30.6 L (36-46) % MCV 89.3 (80-100) fL MCH 29.7 (26-34) PG MCHC 33.2 (30-36) % RDW 15.1 H (11.6-14.8) % Plt Count 261 (150-400) X10^3/uL Neut % (Auto) 75.3 H (50-75) % Lymph % (Auto) 16.6 L (25-40) % [place] % (Auto) 6.2 (3-14) % Eos % (Auto) 1.4 L (2-4) % Baso % (Auto) 0.5 (0-2) % Neut # (Auto) 6100 (9486-7411) /uL Lymph # (Auto) 1300 (7023-9086) /uL [place] # (Auto) 500 (0-900) /uL Eos # (Auto) 100 (0-450) /uL Baso # (Auto) 0 (0-100) /uL Sodium 135 L (137-145) mmol/L Potassium 3.5 (3.4-5.1) mmol/L Chloride 107 (98-107) mmol/L Carbon Dioxide 24 (22-32) mmol/L BUN 12 (7-17) mg/dL Creatinine 0.84 (0.52-1.04) mg/dL Estimated GFR > 60.0 (>60) mL/min BUN/Creatinine Ratio 14.3 (6-22) Glucose 109 (80-110) mg/dL Calcium 8.1 L (8.4-10.2) mg/dL Total Bilirubin < 0.1 L (0.2-1.3) mg/dL AST 21 (14-36) IU/L ALT 10 (<35) IU/L Alkaline Phosphatase 75 (38-126) U/L Total Protein 5.3 L (6.3-8.2) g/dL Albumin 2.5 L (3.5-5.0) g/dL Globulin 2.8 (1.7-4.1) g/dL Albumin/Globulin Ratio 0.9 L (1.0-2.8) Urine RBC 0-1/hpf (0-5/HPF) Urine WBC 0-1/hpf (0-5/HPF) Ur Squamous Epith Cells 5-10 /hpf H (0-5/HPF) Ur Transition Epith Cell 1-5/hpf (0-5/HPF) Amorphous Sediment 1+ Urine Bacteria Few (2-10) H (None) Urine Mucus 1+ H (Negative) Ur Culture Indicated? Cult not indicated Urine Dip Bedside Urine Glucose Negative Bedside Urine Bilirubin - Negative Bedside Urine Ketone - Negative Urine Specific [place] 1.015 Bedside Urine Occult Blood +/- Bedside Urine pH 6.0 Bedside Urine Protein - Negative Bedside Urine Urobilinogen - Negative Bedside Urine Nitrite - Negative Bedside Urine Leukocytes - Negative Esterase MDM Narrative Medical decision making narrative: 86-year-old female brought in by daughter with concern for a UTI. Patient's daughter was concerned because on 08/06/2021 patient had cloudy colored urine with a foul odor it has since cleared and patient does not have any urinary symptoms. patient's exam and history are reassuring, patient has no complaint, denies any nausea or vomiting, dysuria, diarrhea, difficulty breathing or chest pain. Patient reports that she feels at her baseline, and does not feel ill or worse than usual. UA today without wbc's or nitrites, few bacteria were seen and culture was not indicated. Patient's lab work is reassuring, and she does not have a leukocytosis, signs of dehydration, or any electrolyte abnormalities. Her 12 lead EKG was normal sinus rhythm without ST changes. Because patient had a benign exam without signs of infection, I do not think she needs antibiotics at this time. Patient and her daughter given strict ER precautions to return for any worsening of these or other symptoms, patient and her daughter understand to follow up with her oncologist about possible adverse medication reactions from her treatment if this is ongoing. Patient instructed to follow-up with Dr. Greene in the next 2 days for a follow-up of this and to have another urine test. Patient is appropriate and amenable to discharge home. Vital signs are stable on repeat examination is unremarkable. Patient has been informed of results. Patient has been given strict return to ER precautions for any new or worsening symptoms. Patient understands to follow up closely with outpatient providers as instructed. Patient understands plan and agrees to discharge home. All questions and concerns answered at this time. <Yecenia Ramirez, DO - Last Filed: 08/13/21 07:04> Lab Data Labs: Lab Results 08/09/21 08/09/21 08/09/21 Range/Units 15:57 17:12 17:12 WBC 8.0 (4.5-11.0) X10^3/uL RBC 3.43 L (4.0-5.2) X10^6/uL Hgb 10.2 L (12.0-16.0) g/dL Hct 30.6 L (36-46) % MCV 89.3 (80-100) fL MCH 29.7 (26-34) PG MCHC 33.2 (30-36) % RDW 15.1 H (11.6-14.8) % Plt Count 261 (150-400) X10^3/uL Neut % (Auto) 75.3 H (50-75) % Lymph % (Auto) 16.6 L (25-40) % [place] % (Auto) 6.2 (3-14) % Eos % (Auto) 1.4 L (2-4) % Baso % (Auto) 0.5 (0-2) % Neut # (Auto) 6100 (1216-8827) /uL Lymph # (Auto) 1300 (9386-0814) /uL [place] # (Auto) 500 (0-900) /uL Eos # (Auto) 100 (0-450) /uL Baso # (Auto) 0 (0-100) /uL Sodium 135 L (137-145) mmol/L Potassium 3.5 (3.4-5.1) mmol/L Chloride 107 (98-107) mmol/L Carbon Dioxide 24 (22-32) mmol/L BUN 12 (7-17) mg/dL Creatinine 0.84 (0.52-1.04) mg/dL Estimated GFR > 60.0 (>60) mL/min BUN/Creatinine Ratio 14.3 (6-22) Glucose 109 (80-110) mg/dL Calcium 8.1 L (8.4-10.2) mg/dL Total Bilirubin < 0.1 L (0.2-1.3) mg/dL AST 21 (14-36) IU/L ALT 10 (<35) IU/L Alkaline Phosphatase 75 (38-126) U/L Total Protein 5.3 L (6.3-8.2) g/dL Albumin 2.5 L (3.5-5.0) g/dL Globulin 2.8 (1.7-4.1) g/dL Albumin/Globulin Ratio 0.9 L (1.0-2.8) Urine RBC 0-1/hpf (0-5/HPF) Urine WBC 0-1/hpf (0-5/HPF) Ur Squamous Epith Cells 5-10 /hpf H (0-5/HPF) Ur Transition Epith Cell 1-5/hpf (0-5/HPF) Amorphous Sediment 1+ Urine Bacteria Few (2-10) H (None) Urine Mucus 1+ H (Negative) Ur Culture Indicated? Cult not indicated Urine Dip Bedside Urine Glucose Negative Bedside Urine Bilirubin - Negative Bedside Urine Ketone - Negative Urine Specific [place] 1.015 Bedside Urine Occult Blood +/- Bedside Urine pH 6.0 Bedside Urine Protein - Negative Bedside Urine Urobilinogen - Negative Bedside Urine Nitrite - Negative Bedside Urine Leukocytes - Negative Esterase Discharge Plan Departure Patient Disposition: Home Clinical Impression: Concern about infectious disease without diagnosis, Encounter for urine test Activity Restrictions/Additional Instructions: There were any infectious findings on your mom's lab work or urine studies today. Please monitor her for signs and symptoms of this worsening which would include altered mental status, painful urination, urinary retention or incontinence which is new, abdominal pain, foul odor to urine or cloudy urine. Please return if these are worsening for evaluation. You are doing a great job taking care of your mom, I am sorry that the family dynamic is complicated surrounding the care of your mom. I am reassured by her exam that she feels well, and we were unable to find any abnormal findings today. *What to do: *Please continue to take your regular medications as directed. [ ] New medication prescriptions sent to your pharmacy: [ ] [ ] New medication written as a paper prescription [x ] No new medications given *Please follow up with your primary care provider in 2-3 days, call for an appointment. Let them know you were seen in the Emergency Department and that we ask that you be seen in follow up. We will electronically transmit a record of today's note if your PCP is in our system *If you do not have a primary care provider please contact the [facility] Resource line at [phone]. They will ask some questions about your medical history and help get you set up with a doctor in the community. *Return to Emergency Department if you should have any new, worsening or concerning symptoms, such as [fever greater than 101F, chills, worsening pain, persistent vomiting or other bothersome symptoms] Prescriptions: No Action latanoprost [Xalatan] 0.005 % drops 1 drp OU HS Qty: 0 RF: 0 Trimo-Soto Jelly 0.025-0.01 % gel 1 ea VAG .1XW Qty: 113.4 RF: 3 estradiol 0.01 % (0.1 mg/gram) cream See Rx Instructions .ROUTE .COMPLEX Qty: 42.5 RF: 3 lisinopril 20 mg tablet 20 mg PO DAILY RF: 0 acetaminophen 325 mg capsule 325 mg PO Q6H PRN (Reason: Pain (Scale Score 1-3)) RF: 0 cholecalciferol (vitamin D3) 1,000 unit capsule 1,000 unit PO DAILY RF: 0 sucralfate [Carafate] 1 gram tablet 1 g PO Q6-8H RF: 0 pantoprazole [Protonix] 40 mg tablet,delayed release (DR/EC) 40 mg PO DAILY RF: 0 amlodipine 2.5 mg Tablet 2.5 mg PO DAILY RF: 0 levothyroxine 75 mcg Capsule 75 mcg PO DAILY Qty: 30 RF: 1 morphine 0.5 mg/mL Solution 0.25 RF: 0 risperidone 1 mg tablet 0.5 mg PO BID RF: 0 zonisamide [Zonegran] 100 mg capsule 200 mg PO DAILY RF: 0 lamotrigine [Lamictal] 100 mg tablet 100 mg PO BID RF: 0 Referrals: August Greene MD [Primary Care Provider] - <Yecenia Ramirez DO - Last Filed: 08/13/21 07:04> Cosign ED Attending Cosignature Attestation: I was immediately available in the department for consultation. Documentation has been reviewed. I agree with assessment and plan.
[2021-08-09 17:50] LABS: Alanine Aminotransferase 10 IU/L (<35); Albumin 2.5 g/dL (3.5-5.0); Albumin Globulin Ratio 0.9 (1.0-2.8); Alkaline Phosphatase 75 U/L (38-126); Aspartate Aminotransferase 21 IU/L (14-36); BUN Creatinine Ratio 14.3 (6-22); Blood Urea Nitrogen 12 mg/dL (7-17); Calcium 8.1 mg/dL (8.4-10.2); Carbon Dioxide 24 mmol/L (22-32); Chloride 107 mmol/L (98-107); Estimated Glomerular Filt Rate > 60.0 mL/min (>60); Globulin 2.8 g/dL (1.7-4.1); Glucose 109 mg/dL (80-110); HEMOLYSIS < 15 (0-50); Potassium 3.5 mmol/L (3.4-5.1); Sodium 135 mmol/L (137-145); Total Protein 5.3 g/dL (6.3-8.2)
[2021-08-09 18:03] LABS: Bilirubin Total < 0.1 mg/dL (0.2-1.3)
[2021-08-09 19:06] VITALS: BP 130/62; PULSE 64; RESP 12; TEMP 36.6; O2SAT 96
== END 2021-08-09 19:08 | disposition home or self-care (01) ==
PROVIDERS: Emergency Medicine; Emergency Provider Nurse Practitioner Critical Care Medicine; PCP Internal Medicine
DX: R82.998 Other abnormal findings in urine (principal); I10 Essential (primary) hypertension
CPT/HCPCS: 36415; 80053; 81003; 81015; 85025; 93005; 93010; 99283; 99284

== ENCOUNTER → 2021-11-25 14:31 | Outpatient (CLI) | payer OTHER, SELFPAY ==
--- NOTE | 2021-11-25 | DI.ECHO.S_ITS ---
[place] [facility] +---------+ : : [address] : [address] : [address] : : : : [id number] : : : : Phone: [phone] +---------+ Echocardiogram Report + + :Name: JAZZMINE SNYDER V Study Date: 11/25/2021 Height: 60 in : :[facility] ReadingLocation: Weight: 116 lb: : Gender: Female BSA: 1.5 m2 : :: 1935 Age: 86 yrs : :Reason For Study: DYSPNEA : :Ordering Physician: REJI, : :VICKY Performed By: Paloma Gutierrez : :Referring: VICKY MENDOZA : + + Interpretation Summary 1) Normal left ventricular thickness, size, wall motion, and systolic function (EF 55-60%). 2) Normal right ventricular size and function. 3) Diastolic parameters suggest a pseudonormalization pattern, consistent with probable elevated filling pressures. 4) There is mild aortic stenosis (valve area 1.9cm2). 5) Pulmonary artery pressures cannot be estimated because of the lack of a measurable TR jet velocity. 6) Compared to the Echo done 04/18/2021, no significant change. Procedure: A two-dimensional transthoracic echocardiogram with color flow and Doppler was performed. The study quality was technically difficult. Comparison is made with the echocardiogram of 04/18/2021. The patient was in sinus rhythm with heart rates between 60-65 bpm during the exam. Left Ventricle: The left ventricle is normal in size and wall thickness. The ejection fraction is estimated to be 55-60%. Left ventricular systolic function appears normal without focal wall motion abnormalities. Diastolic parameters suggest a pseudonormalization pattern, consistent with probable elevated filling pressures. Right Ventricle: The right ventricle is normal in size and function. Atria: The left atrium is moderately dilated. Right atrial size is normal. There is no Doppler evidence for an interatrial shunt. Mitral Valve: There is mild mitral annular calcification. The mitral valve leaflets are mildly calcified. There is mild mitral regurgitation. Aortic Valve: There is mild aortic valve sclerosis. There is mild aortic stenosis. No aortic regurgitation is present. Tricuspid Valve: The tricuspid valve is normal in structure and function. There is trace tricuspid regurgitation. Pulmonary artery pressures cannot be estimated because of the lack of a measurable TR jet velocity. Pulmonic Valve: The pulmonic valve is not well seen, but is grossly normal. There is mild pulmonic regurgitation. Great Vessels: The aortic root is normal size. The ascending aorta could not be visualized. The IVC is of normal diameter and collapses greater than 50% with a sniff. This suggests a low right atrial pressure of 3 mm Hg. Pericardium/ Pleura There is no pericardial effusion. There is no pleural effusion. MMode/2D Measurements & Calculations LVIDd: 4.5 cm LVOT diam: 1.9 cm LVIDs: 3.2 cm Ao root diam: 3.1 cm FS: 28.5 % IVSd: 0.86 cm LVPWd: 0.82 cm LV villasenor. diameter/BSA (cm/m^2): 3.0 LV sys. diameter/BSA (cm/m^2): 2.2 LA A2 area: 15.8 cm2 RA long axis: 4.6 cm LA A4 area: 21.4 cm2 RA area: 13.4 cm2 LA length (vol): 5.0 cm RA vol: 32.7 ml LA vol: 58.1 ml RA : 22.1 ml/m2 LA vol index: 39.2 ml/m2 IVC diam: 1.0 cm RVD1 (basal): 3.3 cm TAPSE: 2.2 cm Doppler Measurements & Calculations Ao V2 max: 122.4 cm/sec LVOT Max Ney: 78.7 cm/sec Ao V2 mean: 75.5 cm/sec LV V1 max P.5 mmHg Ao max P.0 mmHg LV V1 VTI: 19.8 cm Ao mean P.6 mmHg JUAN JOSE(I,D): 2.2 cm2 Ao V2 VTI: 26.8 cm JUAN JOSE(V,D): 1.9 cm2 sev ratio: 0.74 JUAN JOSE indexed to BSA (cm^2/m^2): 1.5 MV E max ney: 89.7 cm/sec PA V2 max: 100.1 cm/sec MV A max ney: 96.8 cm/sec PA V2 mean: 66.5 cm/sec MV E/A: 0.93 PA mean P.0 mmHg Med Peak E' Ney: 4.8 cm/sec PA pr(Accel): 43.0 mmHg E/E' med: 18.5 Lat Peak E' Ney: 6.2 cm/sec E/E' lat: 14.4 E/e' average: 16.5 MV dec time: 0.24 sec [facility] 58.2 ml Reading Physician:04:35 PM
== END ==
PROVIDERS: PCP Internal Medicine; Referring Provider Internal Medicine; Visit Provider Internal Medicine
DX: R06.09 Other forms of dyspnea (principal); I08.0 Rheumatic disorders of both mitral and aortic valves
CPT/HCPCS: 93306